=== PATIENT | female | born 1940 | race Caucasian/White ===

== ENCOUNTER 2019-08-28 14:23 | Emergency (ER) | payer MEDICARE ==
[~2019-08-28] VITALS: Ht 162.6 cm; Wt 136.1 kg
[2019-08-28] MEDS ORDERED: VALACYCLOVIR HCL 500 MG TAB PO ONE (15:00)
[2019-08-28] MEDS ORDERED: PREDNISONE 20 MG TAB PO ONE (15:00)
== END 2019-08-28 15:16 | disposition home or self-care (01) ==
LOC: ER 14:23
DX: G51.0 Bell's palsy (principal)
CPT/HCPCS: 99283; J7512